=== PATIENT | female | born 1970 | race Caucasian/White ===

== ENCOUNTER 2016-07-25 11:25 | Emergency (ER) | payer OTHER ==
--- NOTE | 2016-07-25 11:59 | CPEKG ---
Heart Rate: 82 RR Interval: 732 P-R Interval: 144 QRSD Interval: 84 QT Interval: 384 QTC Interval: 449 P [place]: 7 QRS [place]: 69 T Wave [place]: -5 EKG Severity - ABNORMAL ECG - EKG Impression: SINUS RHYTHM EKG Impression: NONSPECIFIC T ABNORMALITIES, INFERIOR LEADS EKG Impression: Similar to previous Electronically Signed By: Chuck Hicks 25-Jul-2016 13:01:56
[2016-07-25] MEDS ORDERED: NS 1,000 ML IV ONE ×3 (12:57→14:48)
--- NOTE | 2016-07-25 13:00 | EDPHY ---
H & P Stated Complaint: chest pain ,fatigue, cough Time Seen by Provider: 07/25/16 12:37 HPI/ROS: CHIEF COMPLAINT: Cough, shortness of breath HISTORY OF PRESENT ILLNESS: The patient is a 46-year-old female who comes to the emergency department complaining of a cough, sinus congestion, sore throat and body aches for 3 weeks. She states that over the last 5 days she is having pain with deep inspiration as well. She feels short of breath. She feels febrile but states that when she checks her temperature she is not febrile. She did not have a flu shot this year. She does not have any history of cardiac or pulmonary disease. She is not a smoker. No recent travel or procedures. No hormone use. No leg pain or swelling. REVIEW OF SYSTEMS: Constitutional: denies: chills, fever, recent illness, recent injury EENTM: denies: blurred vision, double vision, nose congestion Respiratory: See HPI Cardiac: denies: chest pain, irregular heart rate, lightheadedness, palpitations Gastrointestinal/Abdominal: denies: abdominal pain, diarrhea, nausea, vomiting, blood streaked stools Genitourinary: denies: dysuria, frequency, hematuria, pain Musculoskeletal: denies: joint pain, muscle pain Skin: denies: lesions, rash, jaundice, bruising Neurological: denies: headache, numbness, paresthesia, tingling, dizziness, weakness Hematologic/Lymphatic: denies: blood clots, easy bleeding, easy bruising Immunologic/allergic: denies: HIV/AIDS, transplant EXAM: GENERAL: Well-appearing, well-nourished and in no acute distress. HEAD: Atraumatic, normocephalic. EYES: Pupils equal round and reactive to light, extraocular movements intact, sclera anicteric, conjunctiva are normal. ENT: TMs normal, nares patent, oropharynx clear without exudates. Moist mucous membranes. NECK: Normal range of motion, supple without lymphadenopathy or JVD. LUNGS: Breath sounds clear to auscultation bilaterally and equal. No wheezes rales or rhonchi. HEART: Regular rate and rhythm without murmurs, rubs or gallops. ABDOMEN: Soft, nontender, normoactive bowel sounds. No guarding, no rebound. No masses appreciated. BACK: No CVA tenderness, no spinal tenderness, step-offs or deformities EXTREMITIES: Normal range of motion, no pitting or edema. No clubbing or cyanosis. NEUROLOGICAL: Cranial nerves II through XII grossly intact. Normal speech, normal gait. 5/5 strength, normal movement in all extremities, normal sensation PSYCH: Normal mood, normal affect. SKIN: Warm, dry, normal turgor, no visible rashes or lesions. Source: Patient Exam Limitations: No limitations - Personal History LMP (Females 10-55): 8-14 Days Ago Current Tetanus/Diphtheria Vaccine: Unsure Current Tetanus Diphtheria and Acellular Pertussis (TDAP): Unsure - Medical/Surgical History Hx Asthma: No Hx Chronic Respiratory Disease: No Hx Diabetes: No Hx Cardiac Disease: No Hx Renal Disease: No Hx Cirrhosis: No Hx Alcoholism: No Hx HIV/AIDS: No Hx Splenectomy or Spleen Trauma: No Other PMH: APPY. - Family History Significant Family History: No pertinent family hx - Social History Smoking Status: Never smoked Alcohol Use: Sober Drug Use: None Constitutional: Initial Vital Signs Temperature (C) 36.5 C 07/25/16 11:30 Heart Rate 80 07/25/16 11:30 Respiratory Rate 18 07/25/16 11:30 Blood Pressure 142/87 H 07/25/16 11:30 O2 Sat (%) 99 07/25/16 11:30 O2 Delivery Mode Room Air Allergies/Adverse Reactions: No Known Allergies Allergy (Verified 07/25/16 11:33) Home Medications: Medication Instructions Recorded Hydrocodone/APAP 5/325 [[place] 1 tab PO Q6 PRN #10 tab 06/08/16 5/325 (RX)] Tylenol 06/08/16 AZITHROMYCIN [Z-PACK] 250 mg PO DAILY #4 tab 07/25/16 Medical Decision Making - Diagnostics EKG Interpretation: An EKG obtained and was read and documented in trace view. Please see trace view for full reading and report. Sinus rhythm, nonspecific T-wave inversion in lead 3 only. Imaging: X-ray: chest x-ray was obtained. I viewed the images myself on the PACS system. My interpretation of the images is: negative for acute disease . The radiologist interpretation is pending. Results: CT scan of the chest angiogram was obtained. The results of the study are negative for PE or infection. The study was read by Dr. Willy Helgans. I viewed the images myself on the PACS system. ED Course/Re-evaluation: 2:45 p.m. we discussed the patient's imaging and lab results are reassuring. her hematocrit is elevated. I curb sided Dr. Adriel Armstrong and discussed the likelihood that this is dehydration. I will rehydrate her and recheck. CT scan and troponin negative. Will also treat her with azithromycin for respiratory infection. 6:15 p.m. the patient's blood work is significantly improved. Suspect that the prior blood test was a lab error. She states that she is feeling completely better. I will discharge with antibiotics and we discussed indications for returning. Differential Diagnosis: Partial list of the Differential diagnosis considered include but were not limited to; bronchitis, pneumonia, upper respiratory tract infection and although unlikely based on the history and physical exam, I also considered hyperviscosity, PE, thrombosis. - Data Points Laboratory Results: Laboratory Results 07/25/16 17:47 07/25/16 12:10 07/25/16 07/25/16 07/25/16 Unknown 17:47 13:15 WBC 6.32 10^3/uL (3.80-9.50) RBC 3.97 L 10^6/uL (4.18-5.33) Hgb 13.0 g/dL (12.6-16.3) Hct 37.3 L D % (38.0-47.0) MCV 94.0 fL (81.5-99.8) MCH 32.7 pg (27.9-34.1) MCHC 34.9 g/dL (32.4-36.7) RDW 12.2 % (11.5-15.2) Plt Count 239 D 10^3/uL (150-400) MPV 9.5 fL (8.7-11.7) Neut % (Auto) 67.1 % (39.3-74.2) Lymph % (Auto) 21.0 % (15.0-45.0) [place] % (Auto) 9.3 % (4.5-13.0) Eos % (Auto) 1.7 % (0.6-7.6) Baso % (Auto) 0.6 % (0.3-1.7) Nucleat RBC Rel Count 0.0 % (0.0-0.2) Absolute Neuts (auto) 4.23 10^3/uL (1.70-6.50) Absolute Lymphs (auto) 1.33 10^3/uL (1.00-3.00) Absolute Monos (auto) 0.59 10^3/uL (0.30-0.80) Absolute Eos (auto) 0.11 10^3/uL (0.03-0.40) Absolute Basos (auto) 0.04 10^3/uL (0.02-0.10) Absolute Nucleated RBC 0.00 10^3/uL (0-0.01) Immature Gran % 0.3 % (0.0-1.1) Immature Gran # 0.02 10^3/uL (0.00-0.10) Sodium Potassium Chloride Carbon Dioxide Anion Gap BUN Creatinine Estimated GFR Glucose Calcium Troponin I Influenza Typ A,B (DFA) NEGATIVE FOR FLU (NEGATIVE) Group A Strep Screen NEGATIVE (NEGATIVE) Group A Strep DNA Pending 07/25/16 12:10 WBC 5.14 10^3/uL (3.80-9.50) RBC 6.72 H 10^6/uL (4.18-5.33) Hgb 21.7 H* g/dL (12.6-16.3) Hct 63.3 H* % (38.0-47.0) MCV 94.2 fL (81.5-99.8) MCH 32.3 pg (27.9-34.1) MCHC 34.3 g/dL (32.4-36.7) RDW 12.6 % (11.5-15.2) Plt Count 110 L 10^3/uL (150-400) MPV 10.4 fL (8.7-11.7) Neut % (Auto) 77.6 H % (39.3-74.2) Lymph % (Auto) 13.4 L % (15.0-45.0) [place] % (Auto) 6.4 % (4.5-13.0) Eos % (Auto) 1.4 % (0.6-7.6) Baso % (Auto) 0.8 % (0.3-1.7) Nucleat RBC Rel Count 0.0 % (0.0-0.2) Absolute Neuts (auto) 3.99 10^3/uL (1.70-6.50) Absolute Lymphs (auto) 0.69 L 10^3/uL (1.00-3.00) Absolute Monos (auto) 0.33 10^3/uL (0.30-0.80) Absolute Eos (auto) 0.07 10^3/uL (0.03-0.40) Absolute Basos (auto) 0.04 10^3/uL (0.02-0.10) Absolute Nucleated RBC 0.00 10^3/uL (0-0.01) Immature Gran % 0.4 % (0.0-1.1) Immature Gran # 0.02 10^3/uL (0.00-0.10) Sodium 139 mEq/L (134-144) Potassium 4.3 mEq/L (3.5-5.2) Chloride 107 mEq/L (97-110) Carbon Dioxide 23 mEq/l (22-31) Anion Gap 9 mEq/L (8-16) BUN 13 mg/dL (7-23) Creatinine 0.7 mg/dL (0.6-1.0) Estimated GFR > 60 Glucose 90 mg/dL (70-100) Calcium 9.4 mg/dL (8.5-10.4) Troponin I < 0.012 ng/mL (0-0.034) Influenza Typ A,B (DFA) Group A Strep Screen Group A Strep DNA Medications Given: Discontinued Medications Azithromycin (Zithromax) 500 mg PO EDNOW ONE PRN Reason: Protocol Stop: 07/25/16 14:50 Last Admin: 07/25/16 15:10 Dose: 500 mg Sodium Chloride (Ns) 1,000 mls @ 0 mls/hr IV ONCE ONE PRN Reason: Wide Open Stop: 07/25/16 12:58 Last Admin: 07/25/16 13:37 Dose: 1,000 mls Sodium Chloride (Ns) 1,000 mls @ 0 mls/hr IV ONCE ONE PRN Reason: Wide Open Stop: 07/25/16 14:46 Last Admin: 07/25/16 15:26 Dose: 1,000 mls Sodium Chloride (Ns) 1,000 mls @ 0 mls/hr IV ONCE ONE PRN Reason: Wide Open Stop: 07/25/16 14:49 Last Admin: 07/25/16 14:56 Dose: 1,000 mls Ketorolac Tromethamine (Toradol) 30 mg IVP EDNOW ONE Stop: 07/25/16 15:57 Last Admin: 07/25/16 16:44 Dose: 30 mg Metoclopramide HCl (Reglan Injection) 10 mg IVP EDNOW ONE Stop: 07/25/16 15:57 Last Admin: 07/25/16 16:44 Dose: 10 mg Departure - Departure Disposition: Home, Routine, Self-Care Clinical Impression: Respiratory tract infection Condition: Fair Instructions: Upper Respiratory Infection (ED) Referrals: NONE *PRIMARY CARE P,. [Primary Care Provider] - As per Instructions Snow Anthony MD [Medical Doctor] - As per Instructions Prescriptions: AZITHROMYCIN [Z-PACK] 250 mg PO DAILY #4 tab
[2016-07-25 13:10] LABS: % IMMATURE GRANULYOCYTES 0.4 % (0.0-1.1); ABSOLUTE IMMATURE GRANULOCYTES 0.02 10^3/uL (0.00-0.10); ADD DIFF? NO; ADD MORPH? NO; ADD SCAN? NO; ATYPICAL LYMPHOCYTE FLAG 10 (0-99); FRAGMENT RBC FLAG 0 (0-99); LEFT SHIFT FLG 0 (0-99); LIPEMIA HEMOLYSIS FLAG 90 (0-99); MEAN CELL HEMOGLOBIN 32.3 pg (27.9-34.1); MEAN CELL HEMOGLOBIN CONCENTR. 34.3 g/dL (32.4-36.7); MEAN CELL VOLUME 94.2 fL (81.5-99.8); MEAN PLATELET VOLUME 10.4 fL (8.7-11.7); PLATELET CLUMPS FLAG 10 (0-99); PLATELET COUNT 110 10^3/uL (150-400); RED BLOOD CELL COUNT 6.72 10^6/uL (4.18-5.33); RED CELL DISTRIBUTION WIDTH 12.6 % (11.5-15.2)
[2016-07-25 13:12] LABS: ANION GAP 9 mEq/L (8-16); CALCIUM 9.4 mg/dL (8.5-10.4); CARBON DIOXIDE 23 mEq/l (22-31); CHLORIDE 107 mEq/L (97-110); CREATININE 0.7 mg/dL (0.6-1.0); GLOMERULAR FILTRATION RATE > 60; GLUCOSE 90 mg/dL (70-100); POTASSIUM 4.3 mEq/L (3.5-5.2); SODIUM 139 mEq/L (134-144)
[2016-07-25 13:14] LABS: HEMOGLOBIN 21.7 g/dL (12.6-16.3)
[2016-07-25 13:15] LABS: HEMATOCRIT 63.3 % (38.0-47.0)
--- NOTE | 2016-07-25 13:40 | DX ---
PA and Lateral Chest Indication: Cough Comparison: 2 view chest dated February 06, 2015 Findings: Mild diffuse peribronchial thickening is similar to January 2015. No superimposed airspace c onsolidation, edema or effusion. The heart size is normal. Impression: No acute process. Mild airways disease similar to January 2015.
[2016-07-25] MEDS ORDERED: IOPAMIDOL (ISOVUE 370) 100 ML BTL IV ONE (13:49)
--- NOTE | 2016-07-25 14:25 | CT ---
CT Chest Angiogram 1407 Hours Indication: Chest pain. Technique: Thinly collimated multidetector helical CT imaging was performed through the chest while 85 mL of Isovue-370 were injected intravenously without complication. The images were then transferr ed to an independent workstation where multiplanar reconstructions were performed. Dose reduction blayne hniques were utilized. Findings: CT Chest Angiogram: The pulmonary arterial system is well opacified. No intraluminal filling defect s to suggest acute or chronic thrombopulmonary embolic disease. The thoracic aorta is normal caliber . No aneurysm or dissection. CT Chest: The lungs are clear. No pneumothorax, consolidation, edema, or effusion. Airway is clear. H eart size normal. No pericardial effusion. Normal sternum. No rib lesion or fracture. Impression: 1. No evidence of thrombopulmonary embolic disease. 2. Clear lungs. No explanation for pain. Comment: Results called to Dr. Chuck Hicks at 2:20 p.m. July 25, 2016.
[2016-07-25] MEDS ORDERED: AZITHROMYCIN 250 MG TAB PO ONE (14:49)
[2016-07-25 15:28] VITALS: PULSE 68; RESP 16
[2016-07-25] MEDS ORDERED: KETOROLAC 30 MG/1 ML SDV IVP ONE (15:56)
[2016-07-25] MEDS ORDERED: METOCLOPRAMIDE 10 MG/2 ML VIAL IVP ONE (15:56)
[2016-07-25 17:51] LABS: % IMMATURE GRANULYOCYTES 0.3 % (0.0-1.1); ABSOLUTE IMMATURE GRANULOCYTES 0.02 10^3/uL (0.00-0.10); ADD DIFF? NO; ADD MORPH? NO; ADD SCAN? NO; ATYPICAL LYMPHOCYTE FLAG 20 (0-99); FRAGMENT RBC FLAG 0 (0-99); HEMATOCRIT 37.3 % (38.0-47.0); LEFT SHIFT FLG 0 (0-99); LIPEMIA HEMOLYSIS FLAG 90 (0-99); MEAN CELL HEMOGLOBIN 32.7 pg (27.9-34.1); MEAN CELL HEMOGLOBIN CONCENTR. 34.9 g/dL (32.4-36.7); MEAN PLATELET VOLUME 9.5 fL (8.7-11.7); PLATELET CLUMPS FLAG 0 (0-99); PLATELET COUNT 239 10^3/uL (150-400); RED BLOOD CELL COUNT 3.97 10^6/uL (4.18-5.33); RED CELL DISTRIBUTION WIDTH 12.2 % (11.5-15.2)
[2016-07-25 18:31] VITALS: BP 118/63; TEMP 97.9; O2SAT 99
== END 2016-07-25 18:29 | disposition home or self-care (01) ==
DX: J98.8 Other specified respiratory disorders (principal)
CPT/HCPCS: 96374; J1885; J2765; Q9967

== ENCOUNTER 2016-11-02 09:56 | Emergency (ER) | payer SELFPAY ==
[2016-11-02 10:06] VITALS: BP 132/67; PULSE 69; RESP 18; TEMP 97.9; O2SAT 98
--- NOTE | 2016-11-02 10:07 | EDPHY ---
H & P Stated Complaint: L ear pain and sore throat x 2 wks;green nasal mucous;sounds congested Time Seen by Provider: 11/02/16 10:07 - Personal History LMP (Females 10-55): Now Current Tetanus Diphtheria and Acellular Pertussis (TDAP): Yes - Medical/Surgical History Hx Asthma: No Hx Chronic Respiratory Disease: No Hx Diabetes: No Hx Cardiac Disease: No Hx Renal Disease: No Hx Cirrhosis: No Hx Alcoholism: No Hx HIV/AIDS: No Hx Splenectomy or Spleen Trauma: No Other PMH: APPY. - Social History Smoking Status: Never smoked Constitutional: Initial Vital Signs Temperature (C) 36.6 C 11/02/16 10:00 Heart Rate 69 11/02/16 10:00 Respiratory Rate 18 11/02/16 10:00 Blood Pressure 132/67 H 11/02/16 10:00 O2 Sat (%) 98 11/02/16 10:00 Allergies/Adverse Reactions: No Known Allergies Allergy (Verified 11/02/16 10:03) Home Medications: Medication Instructions Recorded AZITHROMYCIN [Z-PACK] 250 mg PO DAILY #1 packet 11/02/16 Medical Decision Making ED Course/Re-evaluation: CHIEF COMPLAINT: Left ear pain, sore throat HISTORY OF PRESENT ILLNESS: This patient is a 46 year old female who presents complaining of moderate left ear pain and sore throat presenting two weeks prior to arrival and worsening over time. She also reports mild nasal congestion and intermittent pain to her sinuses. Denies fever, chills, cough, or additional complaints. No pertinent medical history. REVIEW OF SYSTEMS: A 10 point review of systems was performed and is negative with the exception of the elements mentioned in the history of present illness. PHYSICAL EXAM: HR 69, BP 132/67, O2 Sat 98, RR 18 and temp noted General Appearance: Alert, well hydrated, appropriate, and non-toxic appearing. Head: Atraumatic without scalp tenderness or obvious injury. Tenderness over frontal sinuses to palpation. Eyes: Pupils equal, round, reactive to light and accommodation, EOMI, no trauma , no injection. Ears: Bulging left TM with erythema, no perforation, normal landmarks Nose: Atraumatic, no rhinorrhea, clear. Throat: There is no erythema or exudates, no lesions, normal tonsils, mucus membranes moist. Neck: Supple, 2+ carotid upstroke, nontender, no lymphadenopathy. Respiratory: No retractions, no distress, no wheezes, and no accessory muscle use. Lungs are clear to auscultation bilaterally. Cardiovascular: Regular rate and rhythm, no murmurs, rubs, or gallops. Bilateral carotid, radial, dorsalis pedis, and posterior tibial pulses intact. Good capillary refill all extremities. Gastrointestinal: Abdomen is soft, nontender, non-distended, no masses, no rebound, no guarding, no peritoneal signs. Musculoskeletal: Normal active ROM of all extremities, atraumatic. Neurological: Alert, appropriate, and interactive. The patient has normal DTRs and non-focal cranial nerves, motor, sensory, and cerebellar exam. Skin: No rashes, good turgor, no nodules on palpation. Past medical history: Denies. Past surgical history: Appendectomy. Family history: Non-contributory. Social history: Family at bedside. DIFFERENTIAL DIAGNOSIS: The differential diagnosis for the patient's fever included but was not limited to pneumonia, urinary tract infection, viral syndrome, meningitis, and sepsis. MEDICAL DECISION MAKING: This 46 year old female presents to the Emergency Department with complaints of left ear pain and left-sided sore throat increasing in severity over the past two weeks. She reports nasal congestion and pain localized over her frontal sinuses over that time as well. Her exam is significant for left-sided otitis media. Tenderness over sinuses is suggestive of sinusitis. She is afebrile at triage. I explained to the patient my suspicion that she is suffering from left otitis media and sinusitis. I gave her instructions to purchase and take Flonase and Mucinex for the duration of her symptoms. She will be given Azithromycin to treat the infection. She is given customary return precautions and will be discharged home in good condition. Departure - Departure Disposition: Home, Routine, Self-Care Clinical Impression: Sinusitis Qualifiers: Sinusitis location: frontal Chronicity: acute Recurrence: non-recurrent Qualified Code(s): J01.10 - Acute frontal sinusitis, unspecified Otitis media Qualifiers: Otitis media type: unspecified Laterality: left Chronicity: unspecified Qualified Code(s): H66.92 - Otitis media, unspecified, left ear Condition: Good Instructions: Sinusitis (ED), Otitis Media (ED) Additional Instructions: 1. Buy Flonase steroid nasal inhaler twice daily until your symptoms improve. 2. Buy Mucinex [id number] and take this pill daily as directed. 3. Take the full course of azithromycin as prescribed. 4. Follow-up with a primary care provider if your symptoms do not improve in 5- 7 days. We have referred you to our on-call physician, Dr. Perez. 5. Return to the Emergency Department with high fever, chills, worsening pain, or other serious concerns. Referrals: Jeramie Perez MD [Medical Doctor] - As per Instructions Prescriptions: AZITHROMYCIN [Z-PACK] 250 mg PO DAILY #1 packet
== END 2016-11-02 10:16 | disposition home or self-care (01) ==
DX: H66.92 Otitis media, unspecified, left ear (principal); J01.10 Acute frontal sinusitis, unspecified

== ENCOUNTER 2017-05-17 18:24 | Emergency (ER) | payer OTHER ==
--- NOTE | 2017-05-17 18:35 | EDPHY ---
H & P Stated Complaint: Flu-like sxs x 1 mo;also "hands hurt" also x 1 mo Time Seen by Provider: 05/17/17 18:35 Source: Patient - Personal History Current Tetanus Diphtheria and Acellular Pertussis (TDAP): Yes - Medical/Surgical History Hx Asthma: No Hx Chronic Respiratory Disease: No Hx Diabetes: No Hx Cardiac Disease: No Hx Renal Disease: No Hx Cirrhosis: No Hx Alcoholism: No Hx HIV/AIDS: No Hx Splenectomy or Spleen Trauma: No Other PMH: APPY. - Social History Smoking Status: Never smoked Constitutional: Initial Vital Signs Temperature (C) 36.6 C 05/17/17 18:29 Heart Rate 85 05/17/17 18:29 Respiratory Rate 18 05/17/17 18:29 Blood Pressure 126/91 H 05/17/17 18:29 O2 Sat (%) 98 05/17/17 18:29 O2 Delivery Mode Room Air Allergies/Adverse Reactions: No Known Allergies Allergy (Verified 05/17/17 18:28) Home Medications: Medication Instructions Recorded AZITHROMYCIN [Z-PACK] 250 mg PO DAILY #1 packet 05/17/17 Albuterol [Proventil Inhaler] 1 - 2 puffs IH Q4 #1 mdi 05/17/17 HYDROcodone/HOMATROPINE HYCODA 1 tsp PO Q4-6PRN PRN #120 ml 05/17/17 [Hycodan Syrup (RX)] predniSONE 20 mg PO DAILY #5 tab 05/17/17 Medical Decision Making - Diagnostics Imaging Results: Imaging Impressions Chest X-Ray 05/17/17 18:42 Impression: Chest negative for acute abnormality. Imaging: Discussed imaging studies w/ call person Radiologist ED Course/Re-evaluation: CHIEF COMPLAINT: Chest pain, cough HISTORY OF PRESENT ILLNESS: The patient is a 47-year-old female presenting with chest pain and cough that has been ongoing for 1 month. The patient has associated dyspnea secondary to cough. She feels congestion in her lungs and sinuses. Patient has had multiple episodes of diarrhea and vomiting over the past few days. She additionally notes bilateral hand numbness and tingling that occurs occasionally. REVIEW OF SYSTEMS: A 10 point review of systems was performed and is negative with the exception of the elements mentioned in the history of present illness. PHYSICAL EXAM: HR, BP, O2 Sat, RR. Temp noted General Appearance: Alert, well hydrated, appropriate, and non-toxic appearing. Head: Atraumatic without scalp tenderness or obvious injury Eyes: Pupils equal, round, reactive to light and accommodation, EOMI, no trauma , no injection. Ears: Clear bilaterally, no perforation, normal landmarks Nose: No rhinorrhea. Throat: Slight erythema no exudates, no lesions, normal tonsils, mucus membranes moist. Submandibular lymph node swelling.Post nasal drip Neck: Supple, 2+ carotid upstroke, nontender, no lymphadenopathy. Respiratory: Course rhonchi throughout, no focal decrease, expiratory wheezing. Cardiovascular: Regular rate and rhythm, no murmurs, rubs, or gallops. Bilateral carotid, radial, dorsalis pedis, and posterior tibial pulses intact. Good capillary refill all extremities. Gastrointestinal: Abdomen is soft, nontender, non-distended, no masses, no rebound, no guarding, no peritoneal signs. Musculoskeletal: Normal active ROM of all extremities, atraumatic. Neurological: Alert, appropriate, and interactive. The patient has normal DTRs and non-focal cranial nerves, motor, sensory, and cerebellar exam. Skin: No rashes, good turgor, no nodules on palpation. Past medical history: Denies Past surgical history: Appendectomy Family history: Noncontributory Social history: Nonsmoker. DIAGNOSTICS/PROCEDURES/CRITICAL CARE TIME: Chest x-ray is negative for pneumonia. DIFFERENTIAL DIAGNOSIS: The differential diagnosis for the patient's chest pain included but was not limited to bronchitis, myocardial ischemia, pulmonary embolus, chest wall pain, pleural inflammation, and pulmonary infectious causes. MEDICAL DECISION MAKING: Patient presents with ongoing cough and chest pain for 1 month. On examination she has course rhonchi throughout, no focal decrease , expiratory wheezing. Plan for breathing treatment and chest x-ray. Chest congestion and course rhonchi are suggestive of bronchitis. Chest x-ray is negative for pneumonia. Plan to treat patient's URI symptoms with Azithromycin, Prednisone, albuterol inhaler, and cough suppressant. - Data Points Medications Given: Discontinued Medications Albuterol/Ipratropium (Duoneb) 3 ml IH EDNOW ONE Stop: 05/17/17 18:43 Last Admin: 05/17/17 18:57 Dose: 3 ml Departure - Departure Disposition: Home, Routine, Self-Care Clinical Impression: Bronchitis Condition: Good Instructions: Acute Bronchitis (ED) Additional Instructions: Take Prednisone as directed. Take full course of Azithromycin as prescribed. Use the Hycodan syrup as directed to help suppress cough. Use two puffs of your inhaler to improve shortness of breath. You have been referred to a primary care physician below, follow up as needed. Return to the Emergency Department with new or worsening symptoms. Referrals: Suzanne Greenwood MD [Medical Doctor] - As per Instructions (Primary Care Physician referral) Prescriptions: Albuterol [Proventil Inhaler] 1 - 2 puffs IH Q4 #1 mdi AZITHROMYCIN [Z-PACK] 250 mg PO DAILY #1 packet HYDROcodone/HOMATROPINE HYCODA [Hycodan Syrup (RX)] 1 tsp PO Q4-6PRN PRN #120 ml PRN Reason: Cough, Moderate predniSONE 20 mg PO DAILY #5 tab Report Scribed for: Tarun Berrios Report Scribed by: Adriana Berry Date of Report: 05/17/17 Time of Report: 18:46
[2017-05-17] MEDS ORDERED: IPRATROPIUM/ALBUTEROL 3 ML DEYVIAL IH ONE (18:42)
[2017-05-17 19:26] VITALS: BP 125/80; PULSE 89; RESP 16; TEMP 97.7; O2SAT 97
== END 2017-05-17 19:32 | disposition home or self-care (01) ==
DX: J20.9 Acute bronchitis, unspecified (principal)

== ENCOUNTER 2017-05-22 12:27 | Emergency (ER) | payer OTHER ==
[2017-05-22 12:33] VITALS: RESP 18
--- NOTE | 2017-05-22 12:49 | EDPHY ---
H & P Stated Complaint: cough, congestion, CP for approx 1 month Time Seen by Provider: 05/22/17 12:49 - Personal History Current Tetanus/Diphtheria Vaccine: No Current Tetanus Diphtheria and Acellular Pertussis (TDAP): No - Medical/Surgical History Hx Asthma: No Hx Chronic Respiratory Disease: No Hx Diabetes: No Hx Cardiac Disease: No Hx Renal Disease: No Hx Cirrhosis: No Hx Alcoholism: No Hx HIV/AIDS: No Hx Splenectomy or Spleen Trauma: No Other PMH: APPY. - Social History Smoking Status: Never smoked Constitutional: Initial Vital Signs Temperature (C) 36.4 C 05/22/17 12:30 Heart Rate 60 05/22/17 12:30 Respiratory Rate 18 05/22/17 12:30 Blood Pressure 134/84 H 05/22/17 12:30 O2 Sat (%) 99 05/22/17 12:30 O2 Delivery Mode Room Air Allergies/Adverse Reactions: No Known Allergies Allergy (Verified 05/22/17 12:29) Home Medications: Medication Instructions Recorded NK [No Known Home Meds] 05/22/17 Medical Decision Making - Diagnostics Imaging Results: Imaging Impressions Chest X-Ray 05/22/17 13:06 Impression: Clear lungs. No pneumonia or acute process. Imaging: I viewed and interpreted images myself ED Course/Re-evaluation: CHIEF COMPLAINT: Chest pain HISTORY OF PRESENT ILLNESS: This patient is a 47 year old female returning to the emergency department after a visit 05/17/17 for similar symptoms including chest pain, cough, diarrhea, vomiting, and numbness in her hands and fingers. Her symptoms have not resolved despite a 5 day course of Azithromycin and Prednisone. Yesterday, she felt particularly poorly, and is now experiencing pelvic pain and intermittent left-sided sciatic pain. She has a sensation of heaviness in her back, and has not been able to sleep well despite taking Hycodan syrup as a cough suppressant. Her cough and chest pain have been ongoing for approximately one month. She denies fever, dysuria, hematuria, hematemesis, hematochezia, melena, or other associated symptoms. REVIEW OF SYSTEMS: A 10 point review of systems was performed and is negative with the exception of the elements mentioned in the history of present illness. PHYSICAL EXAM: HR, BP, O2 Sat, RR. Temp noted General Appearance: Alert, well hydrated, appropriate, and non-toxic appearing. Head: Atraumatic without scalp tenderness or obvious injury Eyes: Pupils equal, round, reactive to light and accommodation, EOMI, no trauma , no injection. Ears: Clear bilaterally, no perforation, normal landmarks Nose: Atraumatic, no rhinorrhea, clear. Throat: Mild erythema. No exudates, no lesions, normal tonsils, mucus membranes moist. Neck: Supple, nontender, no lymphadenopathy. Respiratory: Coarse rhonchi throughout, no focal decrease, expiratory wheezes. Cardiovascular: Regular rate and rhythm, no murmurs, rubs, or gallops. Good capillary refill all extremities. Gastrointestinal: Abdomen is soft, nontender, non-distended, no masses, no rebound, no guarding, no peritoneal signs. Musculoskeletal: Normal active ROM of all extremities, atraumatic. Neurological: Alert, appropriate, and interactive. Nonfocal neuro exam. Skin: No rashes, good turgor, no nodules on palpation. Past medical history: Denies Past surgical history: Appendectomy Family history: Noncontributory Social history: Lives in [place]. Friend at bedside. Nonsmoker. DIFFERENTIAL DIAGNOSIS: The differential diagnosis for the patient's chest pain included but was not limited to myocardial ischemia, pulmonary embolus, chest wall pain, pleural inflammation, and pulmonary infectious causes. MEDICAL DECISION MAKIN47 year old female presents with chest pain, cough, diarrhea, vomiting, and numbness in her hands and fingers unresolved by a course of Azithromycin and Prednisone. Physical exam largely unchanged from her prior visit, mild oropharyngeal erythema and coarse rhonchi throughout. Chest x-ray 05/17/17, five days ago, was negative for pneumonia. Plan for respiratory pathogen panel, repeat chest x-ray. Repeat chest x-ray shows no evidence of pneumonia or other acute processes. The patient and her friend prefer to be discharged home in good condition pending respiratory pathogen results. She will continue to use Hycodan syrup for cough suppression. Follow up and return precautions discussed. The patient is comfortable with this plan. - Data Points Laboratory Results: 05/22/17 13:20 Bordetella pertussis Spec Source Pending B. pertussis DNA (PCR) Pending B.parapertussis DNA PCR Pending Departure - Departure Disposition: Home, Routine, Self-Care Clinical Impression: Acute bronchitis Qualifiers: Bronchitis organism: other organism Qualified Code(s): J20.8 - Acute bronchitis due to other specified organisms Condition: Good Instructions: Acute Bronchitis (ED) Additional Instructions: 1. Follow up with your primary care provider on Wednesday for further evaluation. 2. Call back at 6:00pm this evening for the results of your respiratory pathogen test. 3. Continue to use Hycodan syrup for cough suppression as needed. You may also try Mucinex for symptom relief. 4. Return to the emergency department for worsening chest pain or shortness of breath, uncontrollable fever, uncontrollable vomiting or diarrhea, or other worsening of condition. Referrals: Leda Pang MD [Medical Doctor] - As per Instructions Report Scribed for: Tarun Berrios Report Scribed by: Leonor Cooper Date of Report: 05/22/17 Time of Report: 14:01
[2017-05-22 14:16] VITALS: BP 128/74; PULSE 74; TEMP 98.1; O2SAT 98
[2017-05-24 17:00] LABS: B.PARAPERTUSSIS PCR Negative; B.PERTUSSIS PCR Negative
== END 2017-05-22 14:16 | disposition home or self-care (01) ==
DX: J20.8 Acute bronchitis due to other specified organisms (principal)
CPT/HCPCS: 87798-90

== ENCOUNTER 2017-09-18 08:13 | Emergency (ER) | payer OTHER ==
[2017-09-18 08:24] VITALS: PULSE 87; RESP 16; TEMP 97.9; O2SAT 96
--- NOTE | 2017-09-18 08:26 | EDPHY ---
H & P Stated Complaint: sore throat and cough Time Seen by Provider: 09/18/17 08:25 HPI/ROS: HPI: This is a 47-year-old female who presents with Chief Complaint: Sore throat and cough Location: Throat Quality: Sore Duration: 1 day Signs and Symptoms: No fever, + unproductive cough, + swollen glands, no wheezing, no chest pain, no shortness of breath, + sinus pressure, + postnasal drip, no body aches, no fatigue, no rhinorrhea Timing: Acute, worse at night Severity: [id number] Context: Patient has a history of asthma presents to the emergency room with complaints of sore throat for 1 day and nonproductive cough that started yesterday evening. She reports she has not had to use her inhaler and has not been wheezing. Denies any fevers. at bedside is had similar symptoms approximately 1 week ago that has slowly improved. Reports decreased appetite. Denies any abdominal pain/nausea/vomiting/urinary symptoms. Denies headaches or neck stiffness. Has not tried any [id number] pain medication. Modifying Factors: None Comment: ROS: see HPI Constitutional: No fever, no chills, no weight loss Eyes: No blurred vision Respiratory: No shortness of breath,+ cough Cardiovascular: No chest pain Gastrointestinal: No nausea, no vomiting, no diarrhea Genitourinary: No dysuria Extremities: No myalgias Neurologic: No weakness, no numbness Skin: No rashes Hematologic: No bruising, no bleeding MEDICAL/SURGICAL/SOCIAL HISTORY: Medical history: Depression, asthma Surgical history: Appendectomy Social history: . CONSTITUTIONAL: Polite and cooperative female, awake and alert, no obvious distress HEENT: Atraumatic and normocephalic, PERRL, EOMI. Tympanic membranes clear. Oropharynx clear, tonsils without hypertrophy and no erythema; uvula midline no exudate and moist pink mucosa. No postpharyngeal edema. Nares patent: Mild mucosal edema; no rhinorrhea. No sinus tenderness with palpation. Airway patent. + spotty cervical anterior lymphadenopathy. No meningismus. Cardiovascular: Normal S1/S2, regular rate, regular rhythm, without murmur rub or gallop. PULMONARY/CHEST: Symmetrical and nontender. Clear to auscultation bilaterally. Good air movement. No accessory muscle usage. ABDOMEN: Soft, nondistended, nontender, no rebound, no guarding, no peritoneal signs, no masses or organomegaly. No CVAT. EXTREMITIES: 2/2 pulses, strength 5/5, no deformities, no clubbing, no cyanosis or edema. NEUROLOGICAL: no focal neuro deficits. GCS 15. SKIN: Warm and dry, no erythema. no rash. Good capillary refill. Source: Patient Exam Limitations: No limitations - Personal History LMP (Females 10-55): Over 28 Days Ago Current Tetanus Diphtheria and Acellular Pertussis (TDAP): Yes - Medical/Surgical History Hx Asthma: No Hx Chronic Respiratory Disease: No Hx Diabetes: No Hx Cardiac Disease: No Hx Renal Disease: No Hx Cirrhosis: No Hx Alcoholism: No Hx HIV/AIDS: No Hx Splenectomy or Spleen Trauma: No Other PMH: APPY, depression - Social History Smoking Status: Never smoked Constitutional: Initial Vital Signs Temperature (C) 36.6 C 09/18/17 08:20 Heart Rate 87 09/18/17 08:20 Respiratory Rate 16 09/18/17 08:20 O2 Sat (%) 96 09/18/17 08:20 O2 Delivery Mode Room Air Allergies/Adverse Reactions: No Known Allergies Allergy (Verified 05/22/17 12:29) Home Medications: Medication Instructions Recorded Benzonatate [Tessalon Pearles (RX)] 100 mg PO Q4 PRN #15 cap 09/18/17 FLUoxetine 09/18/17 Medical Decision Making ED Course/Re-evaluation: Vital signs reviewed upon arrival and afebrile without any systemic signs. Strep test ordered and negative. Patient given Decadron p.o. 8 mg, viscous lidocaine p.o. 15 mL, ibuprofen 800 mg No signs of tonsillar abscess/airway compromise/respiratory distress/Luis A's angina/influenza/asthma exacerbation Lung exam is benign; afebrile; offered chest x-ray but patient politely declined which I feel is reasonable. Patient able to drink fluids without difficulty. I believe this is viral in nature and antibiotics are not indicated. I advised supportive care. Rx for Tessalon Perles given per request. This patient was seen under the supervision of my secondary supervising physician. I evaluated care for this patient independently. Discussed this patient with Dr. Ramos who did not see the patient. Differential Diagnosis: Differential diagnosis includes but is not limited to upper respiratory infection, influenza, strep pharyngitis, sinusitis, bronchitis, asthma exacerbation. - Data Points Laboratory Results: 09/18/17 09/18/17 Unknown 08:30 Group A Strep Screen NEGATIVE (NEGATIVE) Group A Strep DNA Pending Medications Given: Discontinued Medications Dexamethasone (Decadron) 8 mg PO EDNOW ONE Stop: 09/18/17 08:34 Last Admin: 09/18/17 08:36 Dose: 8 mg Ibuprofen (Motrin) 800 mg PO EDNOW ONE Stop: 09/18/17 08:34 Last Admin: 09/18/17 08:37 Dose: 800 mg Lidocaine (Lidocaine 2% Viscous) 15 ml PO EDNOW ONE Stop: 09/18/17 08:34 Last Admin: 09/18/17 08:37 Dose: 15 ml Departure - Departure Disposition: Home, Routine, Self-Care Clinical Impression: Viral pharyngitis, Upper respiratory infection, viral Condition: Good Instructions: Pharyngitis (ED), Upper Respiratory Infection (ED) Additional Instructions: Rapid strep test today was negative. It will be sent for throat culture and if positive you will be notified by the emergency room. Consume a minimum of 8-10 glasses of water or electrolyte fluid replacement drinks that include Gatorade, Powerade, Pedialyte. Perform salt water gargle several times per day as needed for sore throat. Use [id number] throat lozenges or Cepacol throat spray as needed for sore throat. Rest as much as possible until you are feeling better. Take Tylenol 650 mg every 4 hr and/or ibuprofen 600 mg every 8 hr as needed for pain, fever. Please wash your hands frequently, cover your cough, and stay home until you are symptom free. Referrals: [facility],. [Clinic] - As per Instructions Prescriptions: Benzonatate [Tessalon Pearles (RX)] 100 mg PO Q4 PRN #15 cap PRN Reason: Cough, Moderate
[2017-09-18] MEDS ORDERED: IBUPROFEN 800 MG TAB PO ONE (08:33)
[2017-09-18] MEDS ORDERED: DEXAMETHASONE 4 MG TAB PO ONE (08:33)
[2017-09-18] MEDS ORDERED: LIDOCAINE 2% VISCOUS 15 ML UDCUP PO ONE (08:33)
== END 2017-09-18 09:07 | disposition home or self-care (01) ==
DX: J02.8 Acute pharyngitis due to other specified organisms (principal); B97.89 Other viral agents as the cause of diseases classified elsewhere; J06.9 Acute upper respiratory infection, unspecified; J45.909 Unspecified asthma, uncomplicated

== ENCOUNTER 2017-10-30 17:30 | Emergency (ER) | payer OTHER ==
[2017-10-30 17:43] VITALS: BP 125/97
[2017-10-30] MEDS ORDERED: AMOXICILLIN/CLAVULANATE POT 875/125 MG TAB PO ONE (18:17)
--- NOTE | 2017-10-30 18:17 | EDPHY ---
H & P Smoking Status: Never smoked Time Seen by Provider: 10/30/17 17:47 HPI/ROS: CHIEF COMPLAINT: Facial pain, left ear pain HISTORY OF PRESENT ILLNESS: 47-year-old female presents to the emergency department with facial pain and left ear pain. Symptoms began over 2 weeks ago. She thinks that she has even had these symptoms on and off for several months. She has an occasional cough. No fevers or chills. She feels like her symptoms are getting worse. She has been treated in the past with antibiotics for sinusitis. She has never followed up with an ENT. She denies dysphagia. She has sore throat for the last 2 weeks. No chest pain or difficulty breathing. No rash. No known ill contacts. She has tried numerous over-the- counter medications without relief. REVIEW OF SYSTEMS: Constitutional: No fever, no chills. Eyes: No double or blurry vision. ENT: Facial pain, left ear pain. Respiratory: The occasional cough. No shortness of breath Cardiac: No chest pain. Gastrointestinal: No abdominal pain, vomiting or diarrhea. Genitourinary: No dysuria. Musculoskeletal: No neck or back pain. Skin: No rashes. Neurological: No headache. (Chinyere Jensen) Past Medical/Surgical History: Appendectomy, depression (Chinyere Jensen) Social History: Single and lives in [place] (Chinyere Jensen) Physical Exam: General Appearance: Alert, no distress. Afebrile. Eyes: Pupils equal and round. Extraocular motions are all intact. ENT: Mouth: Mucous membranes moist. Tenderness with palpation over the right greater than left maxillary sinus. She has bilateral serous otitis without erythema Respiratory: No wheezing, rhonchi, or rales, lungs are clear to auscultation. Cardiovascular: Regular rate and rhythm. Gastrointestinal: Abdomen is soft and nontender, no masses, no rebound or guarding, bowel sounds normal. Neurological: Alert and oriented x 3, cranial nerves II through XII grossly intact Skin: Warm and dry, no rashes. Musculoskeletal: Nontender to palpate along the cervical, thoracic or lumbar spine. Neck is supple. Extremities: Full range of motion and no peripheral edema. Psychiatric: Patient is oriented X 3, there is no agitation. (Chinyere Jensen) Constitutional: Initial Vital Signs Temperature (C) 36.7 C 10/30/17 17:41 Heart Rate 84 10/30/17 17:41 Respiratory Rate 16 10/30/17 17:41 Blood Pressure 125/97 H 10/30/17 17:41 O2 Sat (%) 97 10/30/17 17:41 O2 Delivery Mode Room Air Allergies/Adverse Reactions: No Known Allergies Allergy (Verified 10/30/17 17:40) Home Medications: Medication Instructions Recorded FLUoxetine 09/18/17 Amoxicillin/Clavulanate Pot 875 mg PO BID #20 tab 10/30/17 [Augmentin 875 mg tab] Benadryl 10/30/17 Multivitamin (*) 10/30/17 Tylenol Extra Strength 10/30/17 Medical Decision Making ED Course/Re-evaluation: 47-year-old female presents to the emergency department was sore throat and facial pain. Clinically I think this patient likely has sinusitis. She will be treated with Augmentin. She was given ENT referral. I do not think imaging studies are indicated. (Chinyere Jensen) Differential Diagnosis: Including but not limited to sinusitis, otitis media, viral upper respiratory infection, influenza, bronchitis (Chinyere Jensen) - Data Points Medications Given: Discontinued Medications Amoxicillin/Clavulanate Potassium (Augmentin 875mg) 875 mg PO EDNOW ONE PRN Reason: Protocol Stop: 10/30/17 18:18 Last Admin: 10/30/17 19:02 Dose: 875 mg Departure - Departure Disposition: Home, Routine, Self-Care Clinical Impression: Sinusitis Qualifiers: Sinusitis location: maxillary Chronicity: acute Recurrence: non-recurrent Qualified Code(s): J01.00 - Acute maxillary sinusitis, unspecified Condition: Good Instructions: Sinusitis (ED) Additional Instructions: Augmentin 875 mg twice daily for 10 days. Flonase nasal spray 2 sprays once a day for 2 weeks. Mucinex, guaifenesin, 600-1200 mg twice daily with a large amount of water to help relieve congestion and facial pain. Return to the emergency department if he developed fever, increasing pain, facial swelling, or if you feel worse in any way. Referrals: Adonay Goncalves MD [Medical Doctor] - 5-7 days, call for appt. (ENT on-call) Prescriptions: Amoxicillin/Clavulanate Pot [Augmentin 875 mg tab] 875 mg PO BID #20 tab
== END 2017-10-30 19:00 | disposition home or self-care (01) ==
DX: J01.00 Acute maxillary sinusitis, unspecified (principal)

== ENCOUNTER 2018-11-20 18:46 | Emergency (ER) | payer SELFPAY ==
[2018-11-20] MEDS ORDERED: NS 1,000 ML IV ONE ×2 (19:14→20:54)
[2018-11-20] MEDS ORDERED: ONDANSETRON 4 MG/2 ML VIAL IVP ONE (19:14)
[2018-11-20] MEDS ORDERED: ACETAMINOPHEN 500 MG TAB ONE (19:48)
[2018-11-20] MEDS: ACETAMINOPHEN 500 MG TAB PO ONE ×3 (19:49→21:01)
[2018-11-20] MEDS ORDERED: IOPAMIDOL (ISOVUE-300) 100 ML BTL ONE (20:03)
[2018-11-20] MEDS ORDERED: KETOROLAC 15 MG/1 ML SDV IVP ONE (20:36)
[2018-11-20] MEDS ORDERED: KETOROLAC 15 MG/1 ML SDV ONE (20:37)
--- NOTE | 2018-11-20 20:46 | EDPHY ---
H & P Stated Complaint: Abd pain/muscle aches x 1 week. Fever and diarrhea x 1 day. Time Seen by Provider: 11/20/18 18:48 HPI/ROS: 48 yo F with hx of fibromyalgia , asthma , presents c/o 1 day of diarrhea, and fevers, nausea. She states she has not felt well all week. On Wednesday she had a root canal. she is not currently on antibiotics. No one else at home with diarrhea,vomiting. Review of systems As per HPI General positive fever no chills no weakness, generalized fatigue HEENT no eye pain no eye discharge. No eye redness, no sore throat Respiratory no cough, no shortness of breath Cardiac no chest pain, no peripheral edema GI positive left lower quadrant abdominal pain, positive diarrhea, no constipation, positive nausea, no vomiting no flank pain, no hematuria, no dysuria Musculoskeletal no myalgias, no joint pain Heme no easy bruising, no easy bleeding Endo no polyuria, no polydipsia Skin no rashes, no pruritus Neuro no syncope, no dizziness, no headaches Psych is no suicidal ideation, no homicidal ideation Source: Patient Exam Limitations: Language barrier - Personal History LMP (Females 10-55): 22-28 Days Ago Current Tetanus Diphtheria and Acellular Pertussis (TDAP): Yes - Medical/Surgical History Hx Asthma: Yes Hx Chronic Respiratory Disease: No Hx Diabetes: No Hx Cardiac Disease: No Hx Renal Disease: No Hx Cirrhosis: No Hx Alcoholism: No Hx HIV/AIDS: No Hx Splenectomy or Spleen Trauma: No Other PMH: APPY, depression, fibromyalgia, asthma - Family History Significant Family History: No pertinent family hx - Social History Smoking Status: Never smoked Alcohol Use: None Drug Use: None - Physical Exam Exam: 48-year-old female alert and oriented with [id number] left abdominal cramping HEENT atraumatic normocephalic, extraocular muscles intact, anicteric Oropharynx -mucosa dry negative for erythema negative exudate, tolerating her own secretions Neck supple no meningismus Lungs clear to auscultation bilaterally Heart regular rate and rhythm without murmur rub or gallop Abdomen nondistended normoactive bowel sounds , positive left lower quadrant and left middle quadrant tenderness to palpation, no guarding no rebound no pulsatile mass Back no CVA tenderness, no step-offs, no spinal tenderness Extremities no cyanosis clubbing or edema Neuro alert and oriented, no focal deficits Constitutional: Initial Vital Signs Temperature (C) 37.4 C 11/20/18 19:01 Heart Rate 98 11/20/18 19:01 Respiratory Rate 16 11/20/18 19:01 Blood Pressure 143/98 H 11/20/18 19:01 O2 Sat (%) 95 11/20/18 19:01 O2 Delivery Mode Room Air Allergies/Adverse Reactions: No Known Allergies Allergy (Verified 11/20/18 18:59) Home Medications: Medication Instructions Recorded FLUoxetine 09/18/17 Multivitamin (*) 10/30/17 Tylenol Extra Strength 10/30/17 Albuterol [Proventil 2 mg (*)] 11/20/18 Ibuprofen 11/20/18 Medical Decision Making - Diagnostics Imaging Results: Imaging Impressions Abdomen CT 11/20/18 19:47 Impression: 1. Normal CT abdomen and pelvis with contrast enhancement. 2. No CT evidence of appendicitis, abscess or bowel obstruction. 3. Incidental follicular cyst left adnexa. Findings discussed with Tara Moraels MD at 20:52 hour, 11/20/2018. ED Course/Re-evaluation: Patient seen and evaluated for left lower quadrant left middle quadrant abdominal pain, diarrhea, low-grade fever, body aches. IV established and labs drawn CBC wbc 5, hgb/hct wnl lactate 1 lipase 76 cmp wnl pt given 2 liters normal saline, morphine 4 mg , ondansetron 4 mg she was then given toradol 15 mg for both pain and fever also acetaminophen [address] abd an dpelvis with contrast done to rule out intraabdominal pathology and specifically to look for signs of diverticulitis, ct is negative Imp diarrhea , dehydration fibromyalgia excacerbation Plan Home Rest, drink plenty of fluids, acetaminophen or ibuprofen as needed for pain Differential Diagnosis: Differential diagnosis considered but not limited to: Diarrhea, gastritis, gastroenteritis, diverticulitis, viral syndrome, pancreatitis, cholecystitis, urinary tract infection, pyelonephritis - Data Points Laboratory Results: 11/20/18 11/20/18 11/20/18 19:23 19:19 19:18 POC Sodium 137 mEq/L mEq/L (135-145) POC Potassium 4.2 mEq/L mEq/L (3.3-5.0) POC Chloride 106.0 mEq/L mEq/L (97-110) POC Total CO2 24 mEq/L mEq/L (22-31) POC BUN 8 mg/dL mg/dL (7-23) POC Creatinine 0.4 mg/dL L mg/dL (0.6-1.0) POC Glucose 97 mg/dL mg/dL (70-100) POC Lactic Acid Tawanda 1.1 mmol/L mmol/L (0.7-2.1) POC Calcium 9.1 mg/dL mg/dL (8.5-10.4) POC Total Bilirubin 0.9 mg/dL mg/dL (0.1-1.4) POC AST 28 IU/L IU/L (14-46) POC ALT 19 IU/L IU/L (9-52) POC Alk Phosphatase 58 IU/L IU/L (38-126) POC Total Protein 7.6 g/dL g/dL (6.3-8.2) POC Albumin 3.8 g/dL g/dL (3.5-5.0) Lipase 76 IU/L IU/L (23-300) Medications Given: Discontinued Medications Acetaminophen (Tylenol) 1,000 mg PO EDNOW ONE Stop: 11/20/18 19:49 Last Admin: 11/20/18 21:01 Dose: 1,000 mg Sodium Chloride (Ns) 1,000 mls @ 0 mls/hr IV ONCE ONE PRN Reason: Wide Open Stop: 11/20/18 19:15 Last Admin: 11/20/18 19:27 Dose: 1,000 mls Sodium Chloride (Ns) 1,000 mls @ 0 mls/hr IV ONCE ONE PRN Reason: Wide Open Stop: 11/20/18 20:55 Last Admin: 11/20/18 21:01 Dose: 1,000 mls Ketorolac Tromethamine (Toradol) 15 mg IVP EDNOW ONE Stop: 11/20/18 20:37 Last Admin: 11/20/18 20:42 Dose: 15 mg Morphine Sulfate (Morphine) 4 mg IVP EDNOW ONE Stop: 11/20/18 19:15 Last Admin: 11/20/18 19:27 Dose: 4 mg Ondansetron HCl (Zofran) 4 mg IVP EDNOW ONE Stop: 11/20/18 19:15 Last Admin: 11/20/18 19:27 Dose: 4 mg Point of Care Test Results: CBC CBC Collection Date 11/20/18 CBC Collection Time 19:18 WBC 5.90 RBC 4.66 HGB 14.9 HCT 42.9 PLT 215 Neut # 5.02 Neut 85.1 LYMPH # 0.45 LYMPH 7.6 MCV 92.1 Chemistry 11/20/18 19:19 POC Sodium 137 mEq/L mEq/L (135-145) POC Potassium 4.2 mEq/L mEq/L (3.3-5.0) POC Chloride 106.0 mEq/L mEq/L (97-110) POC Total CO2 24 mEq/L mEq/L (22-31) POC BUN 8 mg/dL mg/dL (7-23) POC Creatinine 0.4 mg/dL L mg/dL (0.6-1.0) POC Glucose 97 mg/dL mg/dL (70-100) POC Calcium 9.1 mg/dL mg/dL (8.5-10.4) POC Total Bilirubin 0.9 mg/dL mg/dL (0.1-1.4) POC AST 28 IU/L IU/L (14-46) POC ALT 19 IU/L IU/L (9-52) POC Alk Phosphatase 58 IU/L IU/L (38-126) POC Total Protein 7.6 g/dL g/dL (6.3-8.2) POC Albumin 3.8 g/dL g/dL (3.5-5.0) Blood Gas/Lactic Acid-Venous 11/20/18 19:23 POC Lactic Acid Tawanda 1.1 mmol/L mmol/L (0.7-2.1) Urine Dip Collection Date 11/20/18 Collection Time 21:08 Specific [place] (1.002-1.030) 1.010 PH (5.0-7.5) 7.0 Leukocytes (Negative) Negative Nitrites (Negative) Negative Protein (Negative) Negative Glucose (Negative) Negative Ketones (Negative) Trace Urobilnogen (0.2-1.0 EU) 0.2 Bilirubin (Negative) Negative Blood (Negative) Trace Departure - Departure Disposition: Home, Routine, Self-Care Clinical Impression: Diarrhea, Dehydration Condition: Good Instructions: Dehydration (ED), Acute Diarrhea (ED) Additional Instructions: Rest, drink plenty of fluids. acetaminophen every 6 hours as needed for fever or pain. May take ibuprofen every 6 hours also. Follow with your primary clinic on dady if you continue to have symptoms. Referrals: [facility] [Other] - As per Instructions
[2018-11-20 21:41] VITALS: BP 110/76
== END 2018-11-20 21:49 | disposition home or self-care (01) ==
LOC: CED 18:46
DX: R19.7 Diarrhea, unspecified (principal); E86.0 Dehydration
CPT/HCPCS: 74177-PO; 80053-ER; 83605-ER; 85025-QW-ER; 96361-ER; 96374-ER; 96375-ER; 99285-ER; J1885; J2270; J2405; Q9967